=== PATIENT | female | born 1960 | race Caucasian/White ===

== ENCOUNTER 2017-02-11 15:53 | Inpatient (IN) | payer SELFPAY ==
[~2017-02-11] VITALS: Ht 167.6 cm; Wt 82.0 kg
--- NOTE | ~2017-02-11 | HP ---
[facility] AGE: 56 Y [address] ROOM: [place] [address] LOCATION: [facility] [place] ADMIT DATE: 02/11/2017 History & Physical DISCHARGE DATE: FAMILY PHYSICIAN: Steve Pritchard MD ATTENDING PHYSICIAN: MARIETTA BARRERA DATE OF SERVICE: 02/11/2017 CHIEF COMPLAINT: Lower abdominal pain and nausea. HISTORY OF PRESENT ILLNESS: This is a pleasant 56-year-old female with past medical history of type 2 diabetes, hyperlipidemia, and a diaphragmatic hernia repair done at [place] approximately a year ago, with ongoing lower abdominal pain since approximately July, which has intensified of late and is now associated with nausea and vomiting on a few occasions over the past 24 hours. Given these complaints, the patient presented to the emergency department today for further evaluation. She notes ongoing nausea. Denies recent fevers, chills. No chest pain. No shortness of breath. No leg swelling. In regard to her bowel habits, she notes that she continues to have loose bowel movements 3 to 5 times daily and this has not changed of late and is not associated with melena or hematochezia. She does take Lasix chronically for what I am told is lower extremity edema and has been adherent to this. While nauseated, she has noticed a drop-off in her recent fluid intake. On arrival to the emergency department, initial vitals were stable. Exam noted mild suprapubic tenderness, and lab was notable for leukocytosis to 19.3 with creatinine of 1.7, potassium low at 3.0. Procalcitonin negative at less than 0.05. Lactic acid was elevated at 4.8. Urinalysis showed hyaline casts and ketones. CT abdomen showed chronic diverticulosis but was without acute findings per verbal read. PAST MEDICAL HISTORY: 1. Jvd-hxahbkn-zrbknkfxm diabetes type 2. 2. Hyperlipidemia. 3. Obesity. 4. Seasonal allergies. SURGICAL HISTORY: Diaphragmatic hernia repair at [place]. FAMILY HISTORY: Completely reviewed and noncontributory to current presentation. SOCIAL HISTORY: [facility] 56 [facility] [address] ROOM: [place] [address] LOCATION: [facility] [place] ADMIT DATE: 02/11/2017 History & Physical DISCHARGE DATE: FAMILY PHYSICIAN: Steve Pritchard MD ATTENDING PHYSICIAN: MARIETTA BARRERA The patient denies recent alcohol, drug, or tobacco use. ALLERGIES: THE PATIENT HAS LISTED ALLERGIES TO ASPIRIN, MORPHINE, AND CODEINE. MEDICATIONS: Medications from list include, 1. Amaryl. 2. Metformin. 3. Detrol LA. 4. Lasix. 5. Allergy pill. 6. Potassium chloride. 7. Atorvastatin. REVIEW OF SYSTEMS: Complete review of systems was performed and negative except as noted above in HPI. PHYSICAL EXAMINATION: VITAL SIGNS: Temp 97.3, pulse 90, blood pressure 111/78, respirations 16, saturating 96% on room air. GENERAL: The patient is in no apparent distress, lying comfortably on emergency room bed. Cooperative and pleasant with examination. HEENT: Head; normocephalic, atraumatic. Eyes are with pupils equal, round, and reactive to light. Extraocular muscles intact. No scleral icterus. No conjunctival injection. ENT; mucous membranes are dry. No nasal discharge. NECK: Supple. No lymphadenopathy. No JVD. CARDIOVASCULAR: Regular rate and rhythm. No murmurs, rubs, or gallops appreciated. 2+ pulses bilaterally in radial and dorsalis pedis. RESPIRATORY: Clear to auscultation bilaterally, though diminished at bases. Normal respiratory effort and saturating well on room air. ABDOMEN: Soft, minimally tender over suprapubic region. No CVA tenderness. No other appreciable tenderness. No rebound, guarding, or rigidity. EXTREMITIES: Without edema bilaterally. No skin changes appreciated. NEUROLOGIC: Alert and oriented x3. No focal deficits on gross neurologic examination. PSYCH: Normal mood and affect. LABS AND IMAGING: White count 19.3, hemoglobin 14.4, platelets 275. Metabolic workup with sodium 139, potassium 3.0, chloride 101, bicarb 24, BUN 21, creatinine 1.7 from baseline reported of 0.8, glucose 141, calcium 9.0. LFTs within normal limits. Lipase 241. Procalcitonin less than 0.05. Lactic acid 4.8. Urinalysis notable for hyaline casts and ketones. PATIENT'S NAME: RAINE GORDILLO [facility] AGE: 56 Y [address] ROOM: [place] [id number] LOCATION: [facility] [place] ADMIT DATE: 02/11/2017 History & Physical DISCHARGE DATE: FAMILY PHYSICIAN: Steve Pritchard MD ATTENDING PHYSICIAN: MARIETTA BARRERA CT abdomen with diverticulosis, otherwise, no acute findings. ASSESSMENT: 1. Acute renal failure. 2. Lactic acidosis. 3. Hypokalemia. 4. Dehydration. PLAN: We will admit to floor status, inpatient, and rehydrate with normal saline. Repeat CBC, BMP, and lactic acid have been ordered to be drawn here shortly to follow up on electrolyte derangements, renal failure, and lactic acidosis respectively. At this point, no evidence to indicate infection aside from isolated leukocytosis. Vital signs are indeed stable with a negative procalcitonin. Urinalysis would suggest that dehydration is the etiology for lactic acidosis, and with a negative CT scan for acute findings, this is reassuring given her extensive surgical history. We will treat diabetes with Accu-Cheks a.c. and h.s. and sliding scale insulin while holding oral anti-hyperglycemics and hold home Lasix. We will treat with heparin 5000 units t.i.d. for DVT prophylaxis. The patient is a full code. Time spent on date of admission is 25 minutes regarding tupe-xx-wkgv care and review of records. MARIETTA BARRERA MD JDS/modl /[id number] D: [id number] T: [id number] HISTORY & PHYSICAL
--- NOTE | ~2017-02-11 | DS ---
PATIENT'S NAME: RAINE GORDILLO [facility] AGE: 56 Y [address] ROOM: [address] [address] LOCATION: [facility] [place] ADMIT DATE: 02/11/2017 Discharge Summary DISCHARGE DATE: 02/13/2017 FAMILY PHYSICIAN: Steve Pritchard MD ATTENDING PHYSICIAN: Devin Rosales CONSULTING PHYSICIAN: None. ATTENDING PHYSICIAN: On the day of discharge, Dr. Levy. DISCHARGE DIAGNOSES: 1. Metabolic acidosis, suspect secondary to metformin. 2. Abdominal pain secondary to metabolic acidosis. 3. Diabetes mellitus type 2, well controlled with A1c of 6.8. 4. Overweight. 5. Acute kidney injury with hyaline casts. 6. Small bilateral hernia. DISCHARGE MEDICATIONS: 1. Multi-Willam p.o. daily. 2. MiraLAX 17 g p.o. daily. 3. Zocor 20 mg p.o. daily. 4. Amaryl 4 mg p.o. daily. 5. Detrol LA 4 mg p.o. daily. 6. Advil 400 mg p.o. q.6 hours p.r.n. pain. 7. Zyrtec 10 mg p.o. daily. 8. Zofran 4 mg p.o. q.4 hours p.r.n. nausea. MEDICATIONS DISCONTINUED: 1. Metformin. 2. Lasix. 3. K-Tab. HOSPITAL COURSE: Please refer to the admitting H and P dictated by Dr. Rosales for more detailed outline on the patient's presentation. The patient was admitted to medical-surgical unit inpatient status for acute renal failure. The patient was placed on normal saline with 20 mEq of KCl. All oral diabetic medications were held. The patient was placed on insulin sliding scale, mild Accu-Cheks were written for. She was placed on heparin for DVT prophylaxis. The patient was feeling better on 02/12/2017. No chest pain. No shortness of breath. Appetite was fair. No more abdominal pain at that time. At that point, IV was saline locked, and she was changed to an ADA 1800 calorie diet. She continued to be hypokalemic with a potassium of 3.1, therefore KCl was given. The patient continued to have a trend down in her lactate level from 4.8 to 2.3 to 1.7, and on the morning of 02/13/2017, the patient was feeling PATIENT'S NAME: RAINE GORDILLO [facility] AGE: 56 Y [address] ROOM: [address] [address] LOCATION: [facility] [place] ADMIT DATE: 02/11/2017 Discharge Summary DISCHARGE DATE: 02/13/2017 FAMILY PHYSICIAN: Steve Pritchard MD ATTENDING PHYSICIAN: Devin Rosales well with ambulating, eating, was feeling well enough to discharge to her own home. Time was spent counseling the patient on dietary selection, increasing H2O intake, also discussed fully the diuretic, which she used for bilateral lower extremity edema. Discussed monitoring her renal function off the diuretic and metformin. The patient voiced understanding. Arrangements were made for the patient to discharge to her own home on 02/13/2017. She should adhere to a diabetic diet and can have activity as tolerated. She should follow up with Dr. Pritchard preferably this week. Arrangements have been made for Monday02/17/2017. Reviewed once again to stop the Lasix. Discussed again discontinuing the metformin. The patient again voiced understanding. Told to continue with healthy diet, exercise, and she could likely have single agent control in terms of her diabetes. Discharge of this patient took 40 minutes. KAELYN LANCE PA-C FOR MD ROSA SELLERS/domingol /[id number] CC: Steve Pritchard MD d: 02/14/17 0406 t: 02/20/17 1829, DISCHARGE SUMMARY
--- NOTE | ~2017-02-11 | ER ---
PATIENT'S NAME: [facility] AGE: 56 Y [address] ROOM: [address] [address] LOCATION: [facility] [place] ADMIT DATE: 02/11/2017 ER/Outpatient Report DISCHARGE DATE: 02/13/2017 FAMILY PHYSICIAN: Steve Pritchard MD ATTENDING PHYSICIAN: Faby Levy Time of Arrival: 1553 hours. Time of Evaluation: 1559 hours. CHIEF COMPLAINT: Abdominal pain. HISTORY OF PRESENT ILLNESS: The patient is a 56-year-old female, who presents to the emergency department today with chief complaint of abdominal pain. She reports this started at 7:00 this morning with a brief episode of sharp pain across her lower abdomen. She reports some nausea, no vomiting. No diarrhea or constipation. No fevers or chills. No urinary frequency, urgency, or painful urination. No blood in her stool, no dark tarry stools. Reports her pain was 10/10 at maximum when it was sharp, it is currently 5/10 in severity. PAST MEDICAL HISTORY: [id number]-qpsaiaxqd diabetes mellitus type 2, dyslipidemia, obesity, and seasonal allergies. PAST SURGICAL HISTORY: Diaphragmatic hernia repair. SOCIAL HISTORY: The patient denies any tobacco, alcohol, or illicit drug use. ALLERGIES: TO ASPIRIN, MORPHINE, AND CODEINE. MEDICATIONS: Please see list. REVIEW OF SYSTEMS: All systems are reviewed by myself and are negative with the exception of those discussed in HPI and past medical history. PHYSICAL EXAMINATION: VITAL SIGNS: Weight 79.4 kg. Blood pressure 111/78, pulse 96, respiratory rate 16, temperature 97.3, and oxygen saturation 96% on room air. GENERAL: The patient is a 56-year-old female, who appears at stated age, in PATIENT'S NAME: [facility] AGE: 56 Y [address] ROOM: [address] [address] LOCATION: [facility] [place] ADMIT DATE: 02/11/2017 ER/Outpatient Report DISCHARGE DATE: 02/13/2017 FAMILY PHYSICIAN: Steve Pritchard MD ATTENDING PHYSICIAN: Faby Levy mild acute distress secondary to pain in her abdomen. Well developed, well nourished. HEENT: Normocephalic, atraumatic. Pupils are equal, round, and reactive to light. Mucous membranes are moist. NECK: Supple. There is no nuchal rigidity. CARDIOVASCULAR: Regular rate and rhythm. No murmurs, rubs, or gallops. LUNGS: Clear to auscultation bilaterally. No wheezes, rales, or rhonchi. ABDOMEN: Soft with mild lower abdominal tenderness to palpation. There is no rebound, rigidity, or guarding. Positive bowel sounds. MUSCULOSKELETAL: The patient moves all 4 extremities. SKIN: Warm and dry. There are no rashes or lesions noted. LABORATORY DATA AND X-RAYS: Urinalysis: 25 leukocyte esterase, 30 protein, 5 ketones, negative blood, 0 to 2 wbc's, 5 to 10 epithelials, few bacteria, 20 to 50 hyaline casts. White blood cell count 19.3, otherwise normal; ANC is 16.5. Lactate is 4.8. CMP: Potassium 3.0, creatinine 1.7, otherwise unremarkable. LFTs are normal. Lipase is normal. Procalcitonin is less than 0.05. CT scan of the abdomen and pelvis is pending. IMPRESSION: 1. Abdominal pain, unclear etiology. 2. Acute renal failure. 3. Lactic acidosis. 4. Hypokalemia. 5. Dehydration. 6. Initial visit. EMERGENCY DEPARTMENT COURSE: The patient is brought back to the examination room. Seen and evaluated by myself. IV is established. Laboratory analysis and imaging are obtained as described above. CT imaging is pending. I did discuss the case with Dr. Wang. He will follow up on CT imaging and disposition, please see his dictation. DISPOSITION: Per Dr. Wang. DALLIN GAMBINO DO KJR/modl PATIENT'S NAME: RAINE GORDILLO [facility] AGE: 56 Y [address] ROOM: [id number] [place], [place] [address] LOCATION: [facility] [place] ADMIT DATE: 02/11/2017 ER/Outpatient Report DISCHARGE DATE: 02/13/2017 FAMILY PHYSICIAN: Steve Pritchard MD ATTENDING PHYSICIAN: Faby Levy /[id number] d: 02/17/17 0658 t: 02/17/17 0759, OUTPATIENT REPORT
[~2017-02-11 15:53] MED LIST: ADVIL200 MG PO; ALLERGY MED PO; AMARYL4 MG PO; DETROL LA4 MG PO; GLUCOPHAGE1000 MG PO; K-TAB 10MEQ10 MEQ PO; LASIX20 MG PO; MIRALAX17 GM PO; MOVE FREE JOIN1 EACH PO; PREVACID15 MG PO; THERA-VITE W/ B1 TAB PO; ZOCOR20 MG PO; ZOFRAN4 MG PO; ZYRTEC10 MG PO
[2017-02-11 16:20] LABS: BLOOD URINE NEGATIVE /UL (NEGATIVE); COLOR URINE YELLOW (YELLOW); GLUCOSE URINE NEGATIVE (NEGATIVE); KETONE URINE 5 mg/dL (NEGATIVE); LEUKOCYTES URINE 25 /UL (NEGATIVE); NITRITE URINE NEGATIVE (NEGATIVE); PROTEIN URINE 30 mg/dL (NEGATIVE); TURBIDITY URINE CLEAR (CLEAR); UROBILINOGEN URINE 1 mg/dL (NORMAL)
[2017-02-11 16:28] LABS: WBC URINE 0-2 #/HPF (NEGATIVE)
[2017-02-11 16:29] LABS: BACTERIA URINE FEW (NEGATIVE); RBC URINE NEGATIVE #/HPF (NEGATIVE)
[2017-02-11 16:30] LABS: AMORPHOUS URINE 2+ (NEGATIVE); HYALINE CAST URINE 20-50 #/LPF (NEGATIVE)
[2017-02-11 16:47] LABS: BASOPHIL % 0.2 %; EOSINOPHIL % 0.1 %; HEMATOCRIT 41.7 % (33.0-46.0); HEMOGLOBIN 14.4 g/dL (10.0-15.0); IMMATURE GRANULOCYTE # 0.1 K/uL (0.0-0.3); IMMATURE GRANULOCYTE % 0.5 %; LYMPHOCYTE % 10.2 %; MCH 29.2 pg (27.0-34.0); MCHC 34.5 gm/dL (32.0-36.5); MCV 84.6 fl (83.0-98.0); MONOCYTE # 0.7 K/uL (0.0-1.0); MONOCYTE % 3.4 %; MPV 10.9 fl (9.4-12.4); NEUTROPHIL # (ANC) 16.5 K/uL (1.8-7.8); NEUTROPHIL % 85.6 %; NRBC % 0 /100WBC (0-0.00); PLATELET COUNT 275 K/uL (150-450); RBC 4.93 M/uL (3.50-5.50); RDW-CV 13.4 % (11.9-14.6); WBC 19.3 K/uL (4.0-11.0)
[2017-02-11 17:03] LABS: ALBUMIN 3.5 gm/dL (3.5-5.0); CREATININE 1.7 mg/dL (0.5-1.1); TOTAL BILIRUBIN 0.5 mg/dL (0.0-1.5); TOTAL PROTEIN 6.7 g/dL (6.0-8.4)
[2017-02-11 17:20] LABS: INR - (THERAPEUTIC) 1.02 (0.92-1.07); PROTIME 10.7 SECONDS (9.8-11.4); PTT 22 SECONDS (25-32)
[2017-02-11 21:28] LABS: BASOPHIL % 0.2 %; EOSINOPHIL % 0.2 %; HEMATOCRIT 38.1 % (33.0-46.0); IMMATURE GRANULOCYTE % 0.2 %; LYMPHOCYTE # 3.3 K/uL (0.8-4.0); LYMPHOCYTE % 25.6 %; MCH 29.2 pg (27.0-34.0); MCHC 34.1 gm/dL (32.0-36.5); MCV 85.6 fl (83.0-98.0); MONOCYTE # 0.6 K/uL (0.0-1.0); MONOCYTE % 4.7 %; NEUTROPHIL % 69.1 %; NRBC % 0 /100WBC (0-0.00); PLATELET COUNT 252 K/uL (150-450); RBC 4.45 M/uL (3.50-5.50); RDW-CV 13.5 % (11.9-14.6); WBC 13.1 K/uL (4.0-11.0)
[2017-02-11 21:44] LABS: ANION GAP 10.7 (10.0-19.0); CALCIUM 7.6 mg/dL (8.5-10.5); CREATININE 1.3 mg/dL (0.5-1.1)
[2017-02-11 21:45] LABS: POTASSIUM 2.7 mMol/L (3.7-5.1)
[2017-02-12 04:32] LABS: BASOPHIL % 0.3 %; EOSINOPHIL # 0.1 K/uL (0.0-0.5); EOSINOPHIL % 0.6 %; HEMATOCRIT 33.5 % (33.0-46.0); HEMOGLOBIN 11.2 g/dL (10.0-15.0); IMMATURE GRANULOCYTE % 0.3 %; LYMPHOCYTE # 3.7 K/uL (0.8-4.0); LYMPHOCYTE % 37.7 %; MCH 28.8 pg (27.0-34.0); MCHC 33.4 gm/dL (32.0-36.5); MCV 86.1 fl (83.0-98.0); MONOCYTE # 0.6 K/uL (0.0-1.0); MONOCYTE % 6.1 %; MPV 10.7 fl (9.4-12.4); NEUTROPHIL # (ANC) 5.4 K/uL (1.8-7.8); NRBC % 0 /100WBC (0-0.00); RBC 3.89 M/uL (3.50-5.50); RDW-CV 13.6 % (11.9-14.6); WBC 9.8 K/uL (4.0-11.0)
[2017-02-12 04:40] LABS: PLATELET COUNT 199 K/uL (150-450)
[2017-02-12 04:48] LABS: ANION GAP 8.1 (10.0-19.0); CALCIUM 7.6 mg/dL (8.5-10.5); POTASSIUM 3.1 mMol/L (3.7-5.1)
[2017-02-13 04:15] LABS: ALBUMIN 2.5 gm/dL (3.5-5.0); ANION GAP 9.9 (10.0-19.0); CREATININE 0.8 mg/dL (0.5-1.1); PHOSPHORUS 2.6 mg/dL (2.5-4.9)
[2017-02-13 04:17] LABS: POTASSIUM 3.9 mMol/L (3.7-5.1)
[2017-02-13 05:41] LABS: BASOPHIL % 0.5 %; EOSINOPHIL # 0.1 K/uL (0.0-0.5); EOSINOPHIL % 0.8 %; HEMOGLOBIN 11.5 g/dL (10.0-15.0); IMMATURE GRANULOCYTE % 0.3 %; LYMPHOCYTE # 3.4 K/uL (0.8-4.0); LYMPHOCYTE % 42.5 %; MCH 28.5 pg (27.0-34.0); MCHC 31.9 gm/dL (32.0-36.5); MCV 89.1 fl (83.0-98.0); MONOCYTE # 0.5 K/uL (0.0-1.0); MONOCYTE % 6.8 %; MPV 11.1 fl (9.4-12.4); NEUTROPHIL # (ANC) 3.9 K/uL (1.8-7.8); NEUTROPHIL % 49.1 %; NRBC % 0 /100WBC (0-0.00); PLATELET COUNT 196 K/uL (150-450); RBC 4.04 M/uL (3.50-5.50); RDW-CV 13.6 % (11.9-14.6)
== END 2017-02-13 12:00 | disposition disaster alternative care site (69) | DRG 683 ==
LOC: GMED 15:53 → GMSU 18:44
PROVIDERS: Emergency Medicine; Family Medicine; ADMIT Internal Medicine
DX: N17.9 Acute kidney failure, unspecified (principal); E87.2 Acidosis; T38.3X5A Adverse effect of insulin and oral hypoglycemic [antidiabetic] drugs, initial encounter; K46.9 Unspecified abdominal hernia without obstruction or gangrene; E11.9 Type 2 diabetes mellitus without complications; E78.5 Hyperlipidemia, unspecified; E86.0 Dehydration; E87.6 Hypokalemia; E66.3 Overweight; Z68.29 Body mass index [BMI] 29.0-29.9, adult; K57.90 Diverticulosis of intestine, part unspecified, without perforation or abscess without bleeding; J30.2 Other seasonal allergic rhinitis; Z88.6 Allergy status to analgesic agent
CPT/HCPCS: J1644; J1885; J2405; J3480; J7030; J7120